=== PATIENT | female | born 1980 | race Caucasian/White ===

== ENCOUNTER 2016-11-07 18:29 | Emergency (ER) | payer OTHER ==
[~2016-11-07] VITALS: Ht 160 cm; Wt 52.2 kg
[~2016-11-07 18:29] MED LIST: ADVAIR DISKU 11 UNIT INH; ALBUTEROL0.09 MG/A1 INH; AMOXICILLIN500 MG PO; AUGMENTIN 875 M1 TAB PO; DOCUSATE SODIU100 M3 PO; IBUPROFEN800 M1 PO; KEFLEX500 MG PO; PERCOCET 325 MG1 TA2 PO; PREDNISONE50 MG PO; PROAIR HFA0.09 MG/Ac INH; ZITHROMAX250 MG PO
[2016-11-07 18:34] VITALS: BP 129/86
--- NOTE | 2016-11-07 19:50 | ED GENERAL ADULT ---
History of Present Illness General Chief Complaint: Foot or Ankle Injury Stated Complaint: PT STEP ON SOMETHING AND NEED A TETNAS SHOT Source: patient Exam Limitations: no limitations Vital Signs & Intake/Output Vital Signs & Intake/Output Vital Signs Date Time Temp Pulse Resp B/P B/P Pulse O2 O2 Flow FiO2 Mean Ox Delivery Rate 11/07 1834 99.2 110 16 129/86 96 Room Air Allergies Coded Allergies: latex (RASH 11/07/16) Reconcile Medications No Known Home Medications Triage Note: PT STATES SHE STEPPED ON SOMETHING AND STATES SHE NEEDS A TETANUS SHOT. PT STATES SOMETHING WENT RIGHT THROUGH HER FLIP FLOP AND INTO HER RIGHT FOOT. Triage Nurses Notes Reviewed? yes : No Patient currently breastfeeds: No HPI: 35-year-old female history of asthma presents with a puncture wound to her left foot status post stepping on a nail approximately 1.5 hours ago. Patient reports that she was helping her parents put new siding on their house, stepped on a nail that went through her flip-flop into the bottom of her foot. Denies numbness or paresthesias. Unsure of her last tetanus shot. Past History Travel History Traveled to [place] past 21 day No Medical History Any Pertinent Medical History? see below for history Respiratory: asthma Tetanus Vaccine: 12/19/12 Surgical History Surgical History: N Psychosocial History What is your primary language Ghanaian Tobacco Use: Current Daily Use Daily Tobacco Use Amount/Type: => 5 Cigarettes daily ETOH Use: denies use Illicit Drug Use: denies illicit drug use Family History Hx Contributory? No Review of Systems Review of Systems Constitutional: Reports: no symptoms. Respiratory: Reports: no symptoms. Cardiovascular: Reports: no symptoms. GI: Reports: no symptoms. Genitourinary: Reports: no symptoms. Musculoskeletal: Reports: see HPI. Skin: Reports: see HPI. Physical Exam Physical Exam General Appearance: well developed/nourished, no apparent distress, alert, awake , comfortable Head: atraumatic Respiratory: normal breath sounds, lungs clear Cardiovascular: regular rate/rhythm Neurologic/Psych: awake, alert, oriented x 3, normal gait Skin: normal color, warm/dry, puncture wound to the plantar surface of left foot over the second/third metatarsal area, normal sensation, motor strength 5 out 5, cap refill less than 2 secs, unrestricted range of motion of all toes, tendons intact Core Measures ACS in differential dx? No CVA/TIA Diagnosis: No Severe Sepsis Present: No Septic Shock Present: No Progress Differential Diagnoses I considered the following diagnoses in my evaluation of the patient: [Puncture wound versus tendon injury versus bone fracture] Plan of Care: Orders Procedure Date/time Status XRY-FOOT COMPLETE, LEFT 11/07 1950 Active Current Medications Sig/Norma Start time Last Medication Dose Stop Time Status Admin Tetanus/Diphtheria 0.5 ML ONCE ONE 11/08 1999 UNVr Toxoids Adsorbed 11/07 2000 (Decavac) X-ray negative for fracture. Wound cleansed with soap and water, bacitracin and Band-Aid applied. Tetanus updated. (MONA LUU,THEA) Initial ED EKG: none Departure Departure Disposition: HOME OR SELF CARE Condition: Stable Clinical Impression Primary Impression: Puncture wound of foot Referrals: PATIENT HAS NO PRIMARY CARE DR (PCP/Family) Additional Instructions: Keep the wound cleaned and dried. Follow-up with your primary care provider for reevaluation in the next 24-48 hours. Return to the ED for any normal worsening symptoms. Departure Forms: Customer Survey General Discharge Information Prescriptions: Current Visit Scripts No Known Home Medications Critical Care Note Critical Care Note Critical Care Time: non-applicable
--- NOTE | 2016-11-07 21:03 | RADIOLOGY REPORT ---
EXAMINATION: XR FOOT, LEFT CLINICAL INFORMATION: Puncture wound over the second and third metatarsal. COMPARISON: None TECHNIQUE: AP, lateral, and oblique views of the left foot. FINDINGS: No radiopaque foreign body. No air in the soft tissue. Bone and joints are normal. IMPRESSION: Normal left foot.
== END 2016-11-07 21:36 ==
LOC: ERH 18:29
DX: S91.332A Puncture wound without foreign body, left foot, initial encounter (principal); W45.0XXA Nail entering through skin, initial encounter; Y93.89 Activity, other specified; Y92.009 Unspecified place in unspecified non-institutional (private) residence as the place of occurrence of the external cause
CPT/HCPCS: 73630-LT; 90471; 90714

== ENCOUNTER 2017-11-06 11:35 | Emergency (ER) | payer OTHER ==
[~2017-11-06] VITALS: Ht 160 cm; Wt 52.2 kg
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
[2017-11-06 16:40] VITALS: BP 145/78
[2017-11-06] MEDS ORDERED: MEDROL4 M2 PO (16:56)
[2017-11-06] MEDS ORDERED: AFRIN30 ML NS (16:56)
[2017-11-06] MEDS ORDERED: AMOXICILLIN500 M3 PO (16:56)
[2017-11-06] MEDS ORDERED: NORCO 5-325 TA1 EACH PO (16:57)
== END 2017-11-06 17:07 ==
LOC: ERH 11:35
DX: S02.32XA Fracture of orbital floor, left side, initial encounter for closed fracture (principal); Y04.8XXA Assault by other bodily force, initial encounter; Y92.009 Unspecified place in unspecified non-institutional (private) residence as the place of occurrence of the external cause; Y93.89 Activity, other specified
CPT/HCPCS: 96374